=== PATIENT | female | born 1960 | race African-American/Black ===

== ENCOUNTER 2024-08-16 11:59 | Emergency (ER) | payer MEDICARE ==
[~2024-08-16] VITALS: Ht 149.9 cm; Wt 74.8 kg
[2024-08-16 12:16] VITALS: PULSE 82; RESP 18; TEMP 97.4
[2024-08-16 12:33] VITALS: BP 127/77; RESP 18; O2SAT 98
== END 2024-08-16 12:34 | disposition home or self-care (01) ==
LOC: FSED 12:08
DX: S39.012A Strain of muscle, fascia and tendon of lower back, initial encounter (principal); X50.1XXA Overexertion from prolonged static or awkward postures, initial encounter; Y92.89 Other specified places as the place of occurrence of the external cause; I10 Essential (primary) hypertension; E11.9 Type 2 diabetes mellitus without complications; M79.7 Fibromyalgia
CPT/HCPCS: 99282